=== PATIENT | male | born 1980 | race Caucasian/White ===

== ENCOUNTER 2020-12-24 21:13 | Emergency (ER) | payer SELFPAY ==
[2020-12-24] MEDS ORDERED: Boostrix 0.5 ML (Tdap) VIAL ONE (21:45)
[2020-12-24] MEDS ORDERED: Lidocaine 1% (PF) 30 ML VIAL ONE (21:46)
[2020-12-24] MEDS ORDERED: Bacitracin 1 PK ONE (22:44)
== END 2020-12-24 22:55 | disposition home or self-care (01) ==
LOC: ERS 21:13
DX: S61.412A Laceration without foreign body of left hand, initial encounter (principal); F17.210 Nicotine dependence, cigarettes, uncomplicated; Z23 Encounter for immunization; W26.9XXA Contact with unspecified sharp object(s), initial encounter
CPT/HCPCS: 12001; 90471; 90715; J2001

== ENCOUNTER 2021-01-31 10:37 | Emergency (ER) | payer SELFPAY | END 2021-01-31 11:26 | disposition home or self-care (01) | LOC: ERS 10:37 | DX: L30.9 Dermatitis, unspecified (principal); F17.210 Nicotine dependence, cigarettes, uncomplicated | CPT/HCPCS: 99283 ==

== ENCOUNTER 2021-12-13 17:24 | Inpatient (IN) | payer SELFPAY ==
[~2021-12-13 17:24] MED LIST: Iopamidol-370 76% 500 ML 1 ML ONE
[2021-12-13 18:16] LABS: #Eosinphils 0.4 thou/uL (0.0-0.7); #Neutrophils 10.5 thou/uL (1.40-6.50); %Basophils 0.3 % (0.0-1.0); %Eosinophils 2.7 % (0.0-10.0); %Monocytes 12.3 % (0.0-10.0); %Neutrophils 65.8 % (42.0-75.0); Hemoglobin 14.5 g/dL (14.0-18.0); Mean Corpuscular HGB CONC 33.9 g/dL (32.0-36.0); Mean Corpuscular Volume 82.6 fL (78.0-98.0); Mean Platelet Volume 7.5 fL (7.4-10.4); Platelet Count 337 thou/uL (130-400); RBC Distribution Width 12.7 % (11.5-14.5); Red Blood Cell (RBC) Count 5.18 mill/uL (4.70-6.10)
[2021-12-13 18:34] LABS: ALT (SGPT) 20 U/L (8-55); AST (SGOT) 17 U/L (5-34); Albumin 4.1 g/dL (3.5-5.0); Alkaline Phosphatase 92 U/L (40-110); Anion Gap 13 mmol/L (10-20); BUN (Urea Nitrogen) 11 mg/dL (8.9-20.6); Bilirubin, Total 0.6 mg/dL (0.2-1.2); Calc. Creatinine Clearance 0 mL/min (70-130); Calcium 9.4 mg/dL (7.8-10.44); Carbon Dioxide 25 mmol/L (22-29); Chloride 104 mmol/L (98-107); Estimated GFR 104; Globulin 3.6 g/dL (2.4-3.5); Glucose 89 mg/dL (70-105); Potassium 3.7 mmol/L (3.5-5.1); Protein, Total 7.7 g/dL (6.0-8.3); Sodium 138 mmol/L (136-145)
[2021-12-13] MEDS ORDERED: Ondansetron PF 4 MG/2 ML Vial ONE (18:38)
[2021-12-13] MEDS ORDERED: Morphine 4 MG/ML VIAL ONE ×2 (18:38→20:59)
[2021-12-13] MEDS ORDERED: metroNIDAZOLE 500 MG/100 ML BAG ONE (20:59)
[2021-12-13 21:22] LABS: Bilirubin Negative (Negative); Blood, Urine Negative (Negative); Clarity Clear (Clear); Glucose, Urine (Dipstick) Normal (Negative); Ketone, Urine Trace mg/dL (Negative); Leukocyte Negative Leu/uL (Negative); Nitrite Negative (Negative); Protein, Urine (Dipstick) 10 mg/dL (Neg-Trace); Urobilinogen Normal mg/dL (Less than 2)
[2021-12-13 21:24] LABS: Specific Gravity, Urine 1.054 (1.002-1.036)
[2021-12-13] MEDS ORDERED: Morphine 4 MG/ML VIAL SLOW IVP PRN ×3 (21:47→22:16)
[2021-12-13] MEDS ORDERED: metroNIDAZOLE 500 MG in Premix Bag 1 BAG IVPB SCH (22:00)
[2021-12-13] MEDS ORDERED: Ondansetron PF 4 MG/2 ML Vial IVP PRN (22:00)
[2021-12-13] MEDS ORDERED: Ondansetron ODT 4 MG TAB SL PRN (22:00)
[2021-12-13] MEDS ORDERED: Morphine 2 MG/ML VIAL SLOW IVP PRN ×2 (22:01→22:16)
[2021-12-13] MEDS ORDERED: Cefepime 2 GM in Sodium Chloride 0.9% 100 ML IVPB SCH (22:45)
[2021-12-13] MEDS: Sodium Chloride 0.9% 1,000 ML IV SCH (23:12)
[2021-12-13 23:39] VITALS: BMI 29.7
[2021-12-14 02:38] LABS: SARS-CoV-2 NAA Rapid Test Not Detected (NotDetected)
[2021-12-14] MEDS: metroNIDAZOLE 500 MG in Premix Bag 1 BAG IVPB SCH ×3 (04:56→21:46)
[2021-12-14 05:43] LABS: #Eosinphils 0.5 thou/uL (0.0-0.7); #Lymphocytes 2.1 thou/uL (1.20-3.40); #Monocytes 1.6 thou/uL (0.11-0.59); #Neutrophils 9.3 thou/uL (1.40-6.50); %Basophils 0.3 % (0.0-1.0); %Eosinophils 3.7 % (0.0-10.0); %Lymphocytes 15.4 % (21.0-51.0); %Monocytes 11.6 % (0.0-10.0); %Neutrophils 69.1 % (42.0-75.0); Hemoglobin 13.4 g/dL (14.0-18.0); Mean Corpuscular HGB CONC 33.2 g/dL (32.0-36.0); Mean Corpuscular Hemoglobin 27.8 pg (27.0-31.0); Mean Corpuscular Volume 83.7 fL (78.0-98.0); Mean Platelet Volume 7.9 fL (7.4-10.4); Platelet Count 291 thou/uL (130-400); RBC Distribution Width 12.8 % (11.5-14.5); Red Blood Cell (RBC) Count 4.81 mill/uL (4.70-6.10); White Blood Cell (WBC) Count 13.5 thou/uL (4.8-10.8)
[2021-12-14 06:02] LABS: ALT (SGPT) 16 U/L (8-55); AST (SGOT) 14 U/L (5-34); Albumin 3.4 g/dL (3.5-5.0); Alkaline Phosphatase 73 U/L (40-110); Anion Gap 12 mmol/L (10-20); BUN (Urea Nitrogen) 10 mg/dL (8.9-20.6); Bilirubin, Total 0.5 mg/dL (0.2-1.2); Calc. Creatinine Clearance 164 mL/min (70-130); Calcium 8.5 mg/dL (7.8-10.44); Carbon Dioxide 23 mmol/L (22-29); Chloride 105 mmol/L (98-107); Estimated GFR 114; Glucose 84 mg/dL (70-105); Potassium 3.8 mmol/L (3.5-5.1); Protein, Total 6.4 g/dL (6.0-8.3); Sodium 136 mmol/L (136-145)
[2021-12-14] MEDS: Cefepime 2 GM in Sodium Chloride 0.9% 100 ML IVPB SCH ×3 (06:08→22:59)
[2021-12-14] MEDS: Sodium Chloride 0.9% 1,000 ML IV SCH (06:40)
[2021-12-14] MEDS ORDERED: Ketorolac Tromethamine 30 MG/ML VIAL IVP SCH (07:30)
[2021-12-14] MEDS ORDERED: Acetaminophen 500 MG TAB PO SCH (07:30)
[2021-12-14] MEDS ORDERED: Ketorolac Tromethamine 30 MG/ML VIAL IVP PRN (13:30)
[2021-12-14] MEDS: Acetaminophen 500 MG TAB PO SCH ×2 (14:53→21:52)
[2021-12-15] MEDS: metroNIDAZOLE 500 MG in Premix Bag 1 BAG IVPB SCH ×3 (04:52→20:25)
[2021-12-15] MEDS: Cefepime 2 GM in Sodium Chloride 0.9% 100 ML IVPB SCH ×3 (06:38→21:48)
[2021-12-15] MEDS: Acetaminophen 500 MG TAB PO SCH ×3 (06:40→21:49)
[2021-12-15 08:07] LABS: #Eosinphils 0.4 thou/uL (0.0-0.7); #Lymphocytes 1.4 thou/uL (1.20-3.40); #Monocytes 1.1 thou/uL (0.11-0.59); #Neutrophils 7.6 thou/uL (1.40-6.50); %Basophils 0.4 % (0.0-1.0); %Eosinophils 4.2 % (0.0-10.0); %Lymphocytes 13.2 % (21.0-51.0); %Neutrophils 72.2 % (42.0-75.0); Hemoglobin 14.7 g/dL (14.0-18.0); Mean Corpuscular HGB CONC 32.1 g/dL (32.0-36.0); Mean Corpuscular Hemoglobin 27.3 pg (27.0-31.0); Mean Corpuscular Volume 85.1 fL (78.0-98.0); Mean Platelet Volume 8.8 fL (7.4-10.4); Platelet Count 277 thou/uL (130-400); RBC Distribution Width 12.9 % (11.5-14.5); White Blood Cell (WBC) Count 10.6 thou/uL (4.8-10.8)
[2021-12-16] MEDS: metroNIDAZOLE 500 MG in Premix Bag 1 BAG IVPB SCH (04:41)
[2021-12-16] MEDS: Cefepime 2 GM in Sodium Chloride 0.9% 100 ML IVPB SCH (05:43)
[2021-12-16] MEDS: Acetaminophen 500 MG TAB PO SCH ×2 (05:45→13:59)
[2021-12-16 06:00] LABS: #Eosinphils 0.6 thou/uL (0.0-0.7); #Lymphocytes 1.5 thou/uL (1.20-3.40); #Neutrophils 5.6 thou/uL (1.40-6.50); %Basophils 0.5 % (0.0-1.0); %Eosinophils 7.1 % (0.0-10.0); %Lymphocytes 16.9 % (21.0-51.0); %Monocytes 11.2 % (0.0-10.0); %Neutrophils 64.2 % (42.0-75.0); Hemoglobin 14.9 g/dL (14.0-18.0); Mean Corpuscular Hemoglobin 29.5 pg (27.0-31.0); Mean Corpuscular Volume 84.5 fL (78.0-98.0); Platelet Count 227 thou/uL (130-400); RBC Distribution Width 12.4 % (11.5-14.5); Red Blood Cell (RBC) Count 5.06 mill/uL (4.70-6.10); White Blood Cell (WBC) Count 8.7 thou/uL (4.8-10.8)
[2021-12-16 06:12] LABS: Anion Gap 13 mmol/L (10-20); BUN (Urea Nitrogen) 9 mg/dL (8.9-20.6); Calc. Creatinine Clearance 166 mL/min (70-130); Calcium 8.5 mg/dL (7.8-10.44); Carbon Dioxide 20 mmol/L (22-29); Chloride 104 mmol/L (98-107); Estimated GFR 114; Glucose 140 mg/dL (70-105); Potassium 4.1 mmol/L (3.5-5.1); Sodium 133 mmol/L (136-145)
[2021-12-16 12:44] VITALS: BP 133/86; TEMP 98
[2021-12-16] MEDS ORDERED: metroNIDAZOLE 500 MG TAB PO SCH (15:00)
[2021-12-16] MEDS ORDERED: Cefdinir 300 MG CAP PO SCH (21:00)
== END 2021-12-16 14:10 | disposition home or self-care (01) | DRG 872 ==
LOC: ERS 17:24 → SURG A 21:03
PROVIDERS: ADMIT Family Medicine; ATTEND Family Medicine
DX: A41.9 Sepsis, unspecified organism (principal); K57.32 Diverticulitis of large intestine without perforation or abscess without bleeding; F17.210 Nicotine dependence, cigarettes, uncomplicated; R65.20 Severe sepsis without septic shock; Z20.822 Contact with and (suspected) exposure to COVID-19; Z98.890 Other specified postprocedural states
CPT/HCPCS: 36415; 74177; 80048; 80053; 81003; 83690; 85025; 94760; 96361; 96365; 96375; 96376; J0692; J1885; J1956; J2270; J2405; J3490; J7050; Q9967; U0002

== ENCOUNTER 2021-12-23 18:19 | Emergency (ER) | payer SELFPAY ==
[2021-12-23] MEDS ORDERED: Fluorescein Opthalmic Strip ONE (18:39)
[2021-12-23] MEDS ORDERED: Proparacaine 0.5% Opth 15 ML BOT ONE (18:39)
[2021-12-23] MEDS ORDERED: Acetaminophen 500 MG TAB ONE (20:22)
[2021-12-23] MEDS ORDERED: Ibuprofen 200 MG TAB ONE (20:22)
== END 2021-12-23 20:29 | disposition home or self-care (01) ==
LOC: ERS 18:19
DX: T15.02XA Foreign body in cornea, left eye, initial encounter (principal); F17.210 Nicotine dependence, cigarettes, uncomplicated
CPT/HCPCS: 65222

== ENCOUNTER 2023-09-05 21:33 | Inpatient (IN) | payer SELFPAY ==
[2023-09-05 22:41] VITALS: BMI 34.0
[2023-09-07 17:10] VITALS: BP 119/69; TEMP 98.3
== END 2023-09-07 18:58 | disposition home or self-care (01) | DRG 917 ==
LOC: 2SW 22:25 → OBSVTOIN 09-06 14:17
PROVIDERS: ADMIT Internal Medicine; ATTEND Internal Medicine
DX: T43.651A Poisoning by methamphetamines accidental (unintentional), initial encounter (principal); I21.4 Non-ST elevation (NSTEMI) myocardial infarction; R07.9 Chest pain, unspecified; F17.210 Nicotine dependence, cigarettes, uncomplicated; E78.5 Hyperlipidemia, unspecified; R79.89 Other specified abnormal findings of blood chemistry; D72.829 Elevated white blood cell count, unspecified; Z98.890 Other specified postprocedural states; Z87.81 Personal history of (healed) traumatic fracture; Z71.6 Tobacco abuse counseling; Z91.148 Patient's other noncompliance with medication regimen for other reason
CPT/HCPCS: 36415; 80048; 80061; 80306; 84484; 85025; 93306; 96372; G0378; J1644; J1650; J7030